=== PATIENT | female | born 1965 | race African-American/Black ===

== ENCOUNTER 2022-03-24 09:18 | Outpatient (CLI) | payer BC | END 2022-03-24 09:19 | disposition home or self-care (01) | LOC: CSHMAMMO 09:18 | PROVIDERS: ATTEND Internal Medicine | DX: Z12.31 Encounter for screening mammogram for malignant neoplasm of breast (principal); Z80.3 Family history of malignant neoplasm of breast | CPT/HCPCS: 77063; 77067 ==

== ENCOUNTER 2025-07-02 12:28 | Outpatient (CLI) | payer BC | END 2025-07-02 12:29 | disposition home or self-care (01) | LOC: CSHRAD 12:28 | DX: Z01.818 Encounter for other preprocedural examination (principal) | CPT/HCPCS: 71046 ==